=== PATIENT | male | born 1995 | race Native Hawaiian/Other Pacific Islander ===

== ENCOUNTER 2024-11-17 20:14 | Emergency (ER) | payer OTHER, SELFPAY ==
--- OUTSIDE RECORDS SUMMARY | 2024-11-17 20:15 | XMS_ITS | Clinical Summary ---
Author Organization [facility] Address [place], [place] [address] Care Team Providers Care Shade Hanger Name Role Phone Pcp, No Primary Care Provider Unavailabl e Allergies No known active allergies Medications tiZANidine (ZANAFLEX) 4 mg tabletIndication s:Acute left-sided back pain, unspecified back location Take 1 Tablet (4 mg) by mouth every 6 hours if needed for Muscle Spasm. 10 Tablet 06/28/2024 Active Active Problems Problem Noted Date Diagnosed Date Myopia of both eyes with astigmatism 07/10/2017 Leg pain 11/04/2013 Immunizations Name Administration Dates Next Due Hepatitis B (Peds) 03/05/2009,09/13/2008, 008 Tdap 07/14/2008 Social History Tobacco Use Types Packs/Day Years Used Date Smoking Tobacco: Never Smokeless Tobacco: Never Tobacco Cessation:Counseling Given: Yes Alcohol Use Standard Drinks/Week Comments No 0 (1 standard drink = 0.6 oz pur e alcohol) Social Connections Answer Date Recorded Frequency of Communication with Friends and Fami ly Not on file 06/28/2024 Sex and Gender Information Value Date Recorded Sex Assigned at Not on file Legal Sex Male 7:11 AM [facility] Gender Identity Not on file Sexual Orientation Not on file Obstetrics History Last Filed Vital Signs Vital Sign Reading Time Taken Comments Blood Pressure 139/83 06/28/2024 11:11 AM CDT Pulse 82 06/28/2024 11:11 AM CDT Temperature 36.8 C (98.2 F) 01/13/2017 3:00 PM [facility] Respiratory Rate - - Oxygen Saturation 98% 06/28/2024 11: 11 AM CDT Inhaled Oxygen Concentration - - Weight 102.3 kg (225 lb 9.6 oz) 024 11:11 AM CDT Height 168 cm (5' 6.14) 01/13/2017 3:00 PM [facility] Body Mass Index 36.26 01/13/2017 3:00 PM [facility] Plan of Treatment Health Maintenance Due Date Last Done Comments HIV for age 15-65 2011 Hepatitis C screening for ag e 18-79 2014 Depression screening for age 12+ 07/19/2017 07/19/2016 BMI (ht and wt on same day) for age 18+ 01/13/2018 01/13/2017, 11/14/2016, 07/19/2016 Tetanus booster 07/14/2018 07/14/2008 COVID-19 vaccine series (2023- season) 2024 Influenza for age 9-49 07/17/2024 Tdap Completed 07/14/2008 Pneumococcal series for age 6-49 Aged Out No longer eligible b ased on patient's age to complete this topic Insurance [employer] [id number] Care Teams Shade Hanger Relationship Specialty Start Date End Date Pcp, No . PCP - General 04/08/21
[2024-11-17 20:19] VITALS: BP 146/82; PULSE 138; RESP 18; TEMP 39.2; O2SAT 94; BMI 38.6
--- NOTE | 2024-11-17 20:33 | ED_ITS ---
HPI - General Adult General Chief complaint: Fever Stated complaint: fever, diarrhea Time Seen by Provider: 11/17/24 20:29 History of Present Illness HPI narrative: Patient is a healthy 29-year-old gentleman who presents with a 2-3 days of fever. He has had generalized malaise body aches fatigue headache. He has had no significant stiff neck or extremity pain. He has had no rashes no bruising. He has a productive cough. He has had no diarrhea chest pain but is mildly short of breath. He has been taking Tylenol at home but has trouble swallowing pills. He presents with a temperature of 102.5? and a pulse of 138. Related Data Home Medications ?Medication ?Instructions ?Recorded ?Confirmed No Known Home Medications 11/17/24 11/17/24 Allergies Allergy/AdvReac Type Severity Reaction Status Date / Time No Known Drug Allergies Allergy Verified 11/17/24 20:23 Review of Systems Status of ROS: Reports: 10 or more systems reviewed and unremarkable except as noted in History and below PFSH PFS Social History Non-prescribed substance use: denies use Exam Narrative: Exam Narrative: EXAM GENERAL: Patient appears comfortable and well. EYES: No scleral icterus. ENT: Tympanic membranes and oropharynx normal. THYROID: no thyroid nodules or thyromegaly. LYMPH: No supraclavicular or cervical lymphadenopathy. SKIN: Visible skin seen during exam normal or with benign process only. EXT: No dependent lower extremity pedal edema. HEART: Tachycardic. No rubs clicks or gallops. LUNGS: Clear to auscultation bilaterally with no crackles or wheezes. ABD: Soft, non tender, non distended. PSYCH: Good eye contact, speech is not pressured. Const: Vital Signs, click to edit/add: Vital Signs - 24 hr 11/17/24 20:19 11/17/24 21:42 11/17/24 21:43 Temperature 102.5 F H 101.1 F H 101.1 F H Pulse Rate [Pulse Oximeter] 138 H 133 H 133 H Respiratory Rate 18 16 16 Blood Pressure [Ri ght Upper Arm] 146/82 H 127/72 Pulse Oximetry 94 95 95 Oxygen Delivery Me thod Room Air Room Air Room Air Course Course ED Course: Patient presents with fever and tachycardia. Triple swab pending. CBC CMP lactate blood culture UA chest x-ray pending. Patient will be given 1 L of normal saline as well as 30 mg of IV Toradol. Vital Signs Vital signs: Initial Vital Signs Temperature 102.5 F H 11/17/24 20:19 Temperature Source Temporal Artery Scan 11/17/24 20:19 Pulse Rate 138 H 11/17/24 20:19 Respiratory Rate 18 11/17/24 20:19 Blood Pressure 146/82 H 11/17/24 20:19 Blood Pressure Mean 103 11/17/24 20:19 Blood Pressure Position Sitting 11/17/24 20:19 Pulse Oximetry 94 11/17/24 20:19 Oxygen Delivery Method Room Air 11/17/24 20:19 Vital Signs Temperature 102.5 F H 11/17/24 20:19 Pulse Rate 138 H 11/17/24 20:19 Respiratory Rate 18 11/17/24 20:19 Blood Pressure 146/82 H 11/17/24 20:19 Pulse Oximetry 94 11/17/24 20:19 Oxygen Delivery Method Room Air 11/17/24 20:19 Temperature 101.1 F H 11/17/24 21:43 Pulse Rate 133 H 11/17/24 21:43 Respiratory Rate 16 11/17/24 21:43 Blood Pressure 127/72 11/17/24 21:42 Pulse Oximetry 95 11/17/24 21:43 Oxygen Delivery Method Room Air 11/17/24 21:43 Medications Administered Medications: Discontinued Medications Generic Name Dose Route Start Last Admin Trade Name Freq PRN Reason Stop Dose Admin Sodium Chloride 1,000 mls @ 1,000 mls/hr 11/17/24 20:35 11/17/24 21:42 0.9 % Sodium Chloride 1000 Ml IV 11/17/24 21:34 Infused .Q1H DAMARIS Infusion Ketorolac Tromethamine 30 mg 11/17/24 20:33 11/17/24 21:06 Ketorolac 30 Mg/Ml Inj IVP 11/17/24 20:34 30 mg ONCE ONE Administration Medical Decision Making MDM Narrative Medical decision making narrative: Patient is a 29-year-old gentleman who presents with cough and fever. He did receive normal saline as well as IV Toradol his temperature did come down. Whit e blood cell count is normal. Lactate is normal. He is tachycardia as result of his fever but has no signs of organ dysfunction. Labs are otherwise reassuring UA shows no signs of acute infection. COVID influenza and flu are all negative. Does her right lower lobe infiltrate. Blood cultures were collected. We did discuss hospitalization the patient would prefer to be discharged home with oral antibiotics which I do think is reasonable as long he stays on top of his fever and hydration. I did give a copy of my card he will follow-up with me next week to make sure we have good continuity of care. Lab Data Labs: Lab Results 11/17/24 11/17/24 Range/Units 20:22 20:49 WBC 7.44 (4.50-11.00) K/uL RBC 4.92 (4.30-5.90) m/uL Hgb 14.3 (13.5-17.5) gm/dL Hct 43.4 (37.0-53.0) % MCV 88 (80-100) fL MCH 29 (26-34) pg MCHC 33 (32-36) gm/dL RDW Coeff of Jovanny 13.2 (11.5-15.5) % Plt Count 236 (140-440) K/uL Neut % (Auto) 74.9 H (42.0-72.0) % Lymph % (Auto) 15.5 L (20-44) % [place] % (Auto) 8.5 (0.0-11.0) % Eos % (Auto) 0.3 (0.0-7.0) % Baso % (Auto) 0.1 (0.0-3.0) % Neut # (Auto) 5.60 (1.7-7.0) K/uL Lymph # (Auto) 1.20 (0.90-2.90) K/uL [place] # (Auto) 0.60 (0.00-0.90) K/UL Eos # (Auto) 0.02 (0.00-0.50) K/uL Baso # (Auto) 0.01 (0.00-0.30) K/uL Abs Immat Gran (auto) 0.05 (0.00-0.30) K/uL Imm/Tot Granulo (auto) 0.7 % Sodium 136 (135-149) mmol/L Potassium 3.5 L (3.6-5.1) mmol/L Chloride 101 (96-114) mmol/L Carbon Dioxide 25 (20-32) mmol/L Anion Gap 10 (7-15) mEq/L BUN 17 (5-24) mg/dL Creatinine 1.0 (0.5-1.5) mg/dL Estimated Creat Clear 92.09 Estimated GFR 105 ml/min Glucose 137 H (60-115) mg/dL Lactate 1.7 (0.5-1.9) mmol/L Calcium 9.2 (8.4-10.6) mg/dL Total Bilirubin 0.6 (0.1-1.5) mg/dL AST 72 H (12-35) U/L ALT 85 H (4-50) U/L Alkaline Phosphatase 79 (40-150) U/L Total Protein 8.0 (6.0-8.3) g/dL Albumin 4.5 (3.3-5.0) g/dL Urine Color Dark yellow (Yellow) Urine Appearance Clear (Clear) Urine pH 6.0 (5.0-8.5) Ur Specific [place] 1.025 (1.000-1.030) Urine Protein 2+ A (Negative) Urine Glucose (UA) Negative (Negative) Urine Ketones Negative (Negative) Urine Blood 1+ A (Negative) Urine Nitrite Negative (Negative) Urine Bilirubin Negative (Negative) Urine Urobilinogen 2.0 A (0.2-1.0) Ur Leukocyte Esterase Negative (Negative) Urine RBC 0-2 (0-2) Urine WBC 0-2 (0-5) Ur Squamous Epith Cells Few (None-Few) Amorphous Sediment Few A (None) Urine Bacteria None (None) SARS-CoV-2 (PCR) Negative SARS-CoV-2 (Negative) Influenza Type A (PCR) Negative PCR FLU A (Negative) Influenza Type B (PCR) Negative PCR FLU B (Negative) RSV (PCR) Negative PCR RSV (Negative) Discharge Plan Discharge Clinical Impression: Pneumonia Patient Disposition: Home, Self-Care Condition: Stable Instructions: Community Acquired Pneumonia (ED) Additional Instructions: Levaquin as directed Tylenol 1000 mg 4 times a day as needed for fever and malaise. Motrin 600 mg 3 times a day as needed for fever and malaise. Oral hydration Follow-up with Dr. Chne next week Return if symptoms are not managed well at home. Activity Level: No Restrictions Discharge Diet: Regular Prescriptions: No Action No Known Home Medications Follow Up/Referrals: Provider,Not a Local [Primary Care Provider] - Stand Alone Forms: Sara Campbell Info Instructions
--- NOTE | 2024-11-17 20:33 | CRLHL7_ITS ---
For Patients: As a result of the Century Cures Act, medical imaging exams and procedure reports are released immediately into your electronic medical record. You may view this report before your referring provider. If you have questions, please contact your health care provider. Indication: Fever, diarrhea Technique: Single view of the chest Comparison: None Findings/Impression: Low lung volumes. Suspect right basilar consolidation, could represent pneumonia in the appropriate clinical setting. Follow-up radiographs in 4-6 weeks recommended. Dictated by Jarrett Charles MD @ 11/17/2024 9:40:07 PM (Electronically Signed)
[2024-11-17 20:57] LABS: Lactate* 1.7 mmol/L (0.5-1.9)
[2024-11-17 21:04] LABS: PCR FLU A Negative PCR FLU A (Negative); PCR FLU B Negative PCR FLU B (Negative); PCR RSV Negative PCR RSV (Negative); SARS PCR* Negative SARS-CoV-2 (Negative)
[2024-11-17 21:04] LABS: Appearance Urine Clear (Clear); Bilirubin Urine Negative (Negative); Blood Urine 1+ (Negative); Color Urine Dark yellow (Yellow); Glucose Urine Negative (Negative); Ketones Urine Negative (Negative); Leukocyte Esterase Urine Negative (Negative); Nitrite Urine Negative (Negative); Protein Urine 2+ (Negative); Specific Gravity Urine 1.025 (1.000-1.030)
[2024-11-17] MEDS: 0.9 % SODIUM CHLORIDE 1000 ml 1,000 ML IV (21:05)
[2024-11-17] MEDS: KETOROLAC 30 MG/ML inj IVP (21:06)
[2024-11-17 21:12] LABS: RBC Urine 0-2 (0-2); Squamous Epithelial Cell Urine Few (None-Few); WBC Urine 0-2 (0-5)
[2024-11-17 21:13] LABS: Amorphous Sediment Urine Few
[2024-11-17 21:15] LABS: Basophils Absolute Auto 0.01 K/uL (0.00-0.30); Basophils Percent Auto 0.1 % (0.0-3.0); Eosinophils Absolute Auto 0.02 K/uL (0.00-0.50); Eosinophils Percent Auto 0.3 % (0.0-7.0); Hematocrit 43.4 % (37.0-53.0); Hemoglobin* 14.3 gm/dL (13.5-17.5); Immature Granulocytes Abs Auto 0.05 K/uL (0.00-0.30); Immature Granulocytes Pct Auto 0.7 %; Lymphocytes Percent Auto 15.5 % (20-44); Mean Corpuscular HGB Conc 33 gm/dL (32-36); Mean Corpuscular Hemoglobin 29 pg (26-34); Mean Corpuscular Volume 88 fL (80-100); Monocytes Percent Auto 8.5 % (0.0-11.0); Neutrophils Percent Auto 74.9 % (42.0-72.0); Platelet Count* 236 K/uL (140-440); RDW Coefficient of Variation % 13.2 % (11.5-15.5); Red Blood Count 4.92 m/uL (4.30-5.90); White Blood Count* 7.44 K/uL (4.50-11.00)
[2024-11-17 21:18] LABS: Albumin* 4.5 g/dL (3.3-5.0); Chloride* 101 mmol/L (96-114); Potassium* 3.5 mmol/L (3.6-5.1); Sodium* 136 mmol/L (135-149)
[2024-11-17 21:20] LABS: Est. Creatinine Clearance* 92.09; Estimated Glomerular Filt Rate 105 ml/min; Slide Review Reflex No
[2024-11-17 21:21] LABS: Alanine Aminotransferase* 85 U/L (4-50); Alkaline Phosphatase* 79 U/L (40-150); Anion Gap 10 mEq/L (7-15); Aspartate Amino Transferase* 72 U/L (12-35); Bilirubin Total* 0.6 mg/dL (0.1-1.5); Blood Urea Nitrogen* 17 mg/dL (5-24); Calcium* 9.2 mg/dL (8.4-10.6); Carbon Dioxide* 25 mmol/L (20-32); Glucose* 137 mg/dL (60-115)
--- OUTSIDE RECORDS SUMMARY | 2024-11-17 21:28 | XMS_ITS | Clinical Summary ---
Author Organization [email or web address] Address [place], [place] [address] Care Team Providers Care Hatch Supervisor Name Role Phone Pcp, No Primary Care [...] on file Legal Sex Male 7:11 AM [facility] Gender Identity Not on file Sexual Orientation Not on file Obstetrics History Last Filed Vital Signs Vital Sign Reading Time Taken Comments Blood Pressure 139/83 06/28/2024 11:11 AM CDT Pulse 82 06/28/2024 11:11 AM CDT Temperature 36.8 C (98.2 F) 01/13/2017 3:00 PM [facility] Respiratory Rate - - Oxygen Saturation 98% 06/28/2024 11: 11 AM CDT Inhaled Oxygen Concentration - - Weight 102.3 kg (225 lb 9.6 oz) 024 11:11 AM CDT Height 168 cm (5' 6.14) 01/13/2017 3:00 PM [facility] Body Mass Index 36.26 01/13/2017 3:00 PM [facility] Plan of Treatment Health Maintenance Due Date [...] complete this topic Insurance [employer] [id number] Care Teams Hatch Supervisor Relationship Specialty Start Date End Date Pcp, No . PCP - General 04/08/21
[2024-11-17 21:42] VITALS: BP 127/72; PULSE 133; RESP 16; TEMP 38.4; O2SAT 95
[2024-11-17 21:43] VITALS: PULSE 133; RESP 16; TEMP 38.4; O2SAT 95
== END 2024-11-17 22:08 | disposition home or self-care (01) ==
PROVIDERS: Emergency Provider Internal Medicine
DX: J18.9 Pneumonia, unspecified organism (principal)
CPT/HCPCS: 36415; 71045; 80053; 81001; 81003; 83605; 85025; 87040; 87631; 96374; 99283; J1885; J7030